=== PATIENT | female | born 1995 | race Caucasian/White ===

== ENCOUNTER 2016-07-15 | Emergency (ER) | payer OTHER ==
--- NOTE | 2016-07-15 11:28 | ED Physician Documentation ---
PD HPI WOUND RECHECK - Stated complaint Stated Complaint: REPACK OF ABSCESS - Chief complaint Chief Complaint: Wound - Histroy obtained from History obtained from: Patient - History of Present Illness Location: Other (buttocks) Timing - onset: How many days ago (12) Associated symptoms: Swelling, Drainage, Pain Similar symptoms before: Diagnosis (abscess) Recently seen: Clinic (The patient has been seen at [facility], placed on antibiotic and has had subsequent I&D and packing. She has been in to have the packing changed daily. She has had a decrease in the pain. She is ready to have the packing out. She notes a smell to the packing and she is not currently on antibiotic.) - Additional information Additional information: 21-year-old female with a 12 day history of abscess to the right buttocks has had I&D done 8 days ago and she has had packing replaced daily she is in here this morning and really would like to have her packing removed. 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 - Present Medications Home Medications: Ambulatory Orders Medication Instructions Recorded Confirmed Oxycodone HCl/Acetaminophen 07/15/16 [Percocet 5-325 mg Tablet] Sulfamethoxazole/Trimethoprim 1 each PO BID #14 tablet 07/15/16 [Sulfamethoxazole-Tmp Ds Tablet] - Allergies Allergies/Adverse Reactions: Allergies Allergy/AdvReac Type Severity Reaction Status Date / Time No Known Drug Allergies Allergy Verified 07/15/16 10:59 - Social History Does the pt smoke?: No Smoking Status: Never smoker Does the pt drink ETOH?: No Does the pt have substance abuse?: No - Immunizations Immunizations are current?: Yes PD ED PE NORMAL - Vitals Vital signs reviewed: Yes (normal) - General General: No acute distress, Well developed/nourished - HEENT HEENT: Atraumatic, PERRL, EOMI - Respiratory Respiratory: No respiratory distress - Back Back: Other (in the right buttock there is a 1 cm healing abscess cavity the packing is removed it is foul smelling there is drainage on the packing in the base of the wound appears clean and dry. The packing is left out.) - Derm Derm: Normal color, Warm and dry, No rash - Extremities Extremities: No deformity, No edema - Neuro Neuro: Alert and oriented X 3, No motor deficit, No sensory deficit, Normal speech - Psych Psych: Normal mood, Normal affect Results - Vitals Vitals: Vital Signs - 24 hr 07/15/16 10:56 Temperature 36.6 C Heart Rate 92 Respiratory 16 Rate Blood Pressure 110/77 O2 Saturation 100 Oxygen O2 Source Room air PD MEDICAL DECISION MAKING - ED course Complexity details: considered differential, d/w patient ED course: 21-year-old female healing buttocks abscess has her packing removed and we'll place her back on some antibiotic. Departure - Departure Disposition: 01 Home, Self Care Clinical Impression: Abscess of buttock, right Condition: Stable Instructions: ED Abscess IandD Follow-Up: Bill Lou ARNP [Primary Care Provider] - Prescriptions: Sulfamethoxazole/Trimethoprim [Sulfamethoxazole-Tmp Ds Tablet] 1 each PO BID # 14 tablet
== END 2016-07-15 11:36 | disposition home or self-care (01) ==
CPT/HCPCS: 99283

== ENCOUNTER 2019-08-01 18:50 | Emergency (ER) | payer OTHER ==
[2019-08-01 18:56] VITALS: BP 136/80
[2019-08-01 19:15] LABS: RAPID STREP SCREEN Negative (Negative)
--- NOTE | 2019-08-01 20:01 | ED Physician Documentation ---
PD HPI URI - Stated complaint Stated Complaint: SORE THROAT,FEVER - Chief complaint Chief Complaint: Heent - History obtained from History obtained from: Patient - History of Present Illness Timing - onset: Other (2 days of sore throat and fever, scratchy sensation without other URI symptoms. Her son is sick with a URI and she was recently exposed to strep.) Review of Systems Constitutional: reports: Fever, Chills Nose: reports: Rhinorrhea / runny nose. 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 - Present Medications Home Medications: Ambulatory Orders Medication Instructions Recorded Confirmed No Known Home Medications 05/08/19 08/01/19 - Allergies Allergies/Adverse Reactions: Allergies Allergy/AdvReac Type Severity Reaction Status Date / Time No Known Drug Allergies Allergy Verified 08/01/19 18:56 - Social History Does the pt smoke?: No Smoking Status: Never smoker Does the pt drink ETOH?: No Does the pt have substance abuse?: No - Immunizations Immunizations are current?: Yes - POLST Patient has POLST: No PD ED PE NORMAL - Vitals Vital signs reviewed: Yes - General General: Alert and oriented X 3, No acute distress - HEENT HEENT: PERRL, EOMI, Ears normal, Moist mucous membranes, Pharynx benign - Neck Neck: Supple, no meningeal sign, No bony TTP - Neuro Neuro: Alert and oriented X 3, Normal speech Results - Vitals Vitals: Vital Signs - 24 hr 08/01/19 18:54 Temperature 37.0 C Heart Rate 90 Respiratory 16 Rate Blood Pressure 136/80 H O2 Saturation 100 Oxygen O2 Source Room air - Labs Labs: Laboratory Tests 08/01/19 18:55 Group A Strep Rapid Negative Departure - Departure Disposition: Home, Self Care Clinical Impression: Viral pharyngitis Condition: Good Record reviewed to determine appropriate education?: Yes Instructions: ED Pharyngitis Viral Report Pending Comments: Return in a week if not better, sooner if worse or new symptoms develop. Your blood pressure was elevated today on check into the emergency department. This does not mean that you have hypertension, it is a common phenomenon to come to the emergency department and have elevated blood pressure. I recommend that you see your primary care physician within the week to have it rechecked when you are feeling better.
== END 2019-08-01 20:04 | disposition home or self-care (01) ==
LOC: ED 18:50
DX: J02.8 Acute pharyngitis due to other specified organisms (principal); R03.0 Elevated blood-pressure reading, without diagnosis of hypertension
CPT/HCPCS: 87070; 87430; 99282; 99283

== ENCOUNTER 2020-04-20 08:19 | Emergency (ER) | payer OTHER ==
--- NOTE | 2020-04-20 08:43 | ED Physician Documentation ---
PD HPI ABD PAIN - Stated complaint Stated Complaint: RT SIDE PX - Chief complaint Chief Complaint: Abd Pain - History obtained from History obtained from: Patient - History of Present Illness Timing - onset: How many days ago (2-3) Timing - duration: Days (2-3) Timing - details: Gradual onset, Still present Quality: Cramping, Aching, Pain Location: RLQ Radiation: Lower back Improved by: No: Eating, BM Worsened by: Moving, Position (lying on side hurts more). No: Eating Associated symptoms: Nausea, Loss of appetite. No: Fever, Vomiting, Diarrhea, Constipation, Hematochezia, Dysuria, Vaginal dc Similar symptoms before: Diagnosis (has history of Crohns but has not had exac for several years.) Recently seen: Not recently seen Review of Systems Constitutional: reports: Fatigue. denies: Fever, Chills, Myalgias Nose: denies: Rhinorrhea / runny nose, Congestion Throat: denies: Sore throat Respiratory: denies: Cough GI: reports: Abdominal Pain (RLQ only), Nausea, Other (some local swelling right perirectal area that was present 2 days ago and decreased a lot on its own with warm towels.). 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: Oophrectomy (right side at age 10 due to ruptured ovarian cyst) - Present Medications Home Medications: Ambulatory Orders Medication Instructions Recorded Confirmed Doxycycline Monohydrate 100 mg PO BID #14 tablet 04/20/20 Famotidine 20 mg PO DAILY #30 tablet 20 Naproxen 375 mg PO TID #30 tablet 04/20/20 dexAMETHasone [Decadron] 4 mg PO DAILY #7 tablet 04/20/20 - Allergies Allergies/Adverse Reactions: Allergies Allergy/AdvReac Type Severity Reaction Status Date / Time No Known Drug Allergies Allergy Verified 04/20/20 08:29 - Social History Does the pt smoke?: No Smoking Status: Never smoker Does the pt drink ETOH?: No Does the pt have substance abuse?: No - Immunizations Immunizations are current?: Yes - POLST Patient has POLST: No PD ED PE NORMAL - Vitals Vital signs reviewed: Yes - General General: Alert and oriented X 3, No acute distress, Well developed/nourished - HEENT HEENT: Moist mucous membranes, Pharynx benign - Neck Neck: Supple, no meningeal sign, No adenopathy - Cardiac Cardiac: RRR, No murmur - Respiratory Respiratory: Clear bilaterally - Abdomen Abdomen: Normal bowel sounds, Soft, Non distended, No organomegaly, Other (Tender with localized guarding but no percussion no rebound in the right lower quadrant. No inguinal adenopathy. No redness nor sores of the skin.) - Female Female : Deferred - Rectal Rectal: Other (Perirectal area shows some mild firmness about 1 cm in size or less in the subcutaneous area. No redness fluctuance or warmth. She states it is much less than it was a couple of days ago.) Results - Vitals Vitals: Vital Signs - 24 hr 04/20/20 04/20/20 04/20/20 08:24 10:40 11:46 Temperature 36.8 C 37 C Heart Rate 80 73 62 Respiratory 15 18 16 Rate Blood Pressure 124/76 116/70 113/63 O2 Saturation 100 100 100 04/20/20 12:46 Temperature 36.8 C Heart Rate 80 Respiratory 16 Rate Blood Pressure 108/63 O2 Saturation 99 Oxygen O2 Source Room air - Labs Labs: Laboratory Tests 04/20/20 04/20/20 04/20/20 09:20 09:20 09:20 WBC 8.8 RBC 4.86 Hgb 13.5 Hct 40.1 MCV 82.5 MCH 27.8 MCHC 33.7 RDW 13.3 Plt Count 259 MPV 9.4 Neut # (Auto) 6.6 Lymph # (Auto) 1.5 [place] # (Auto) 0.6 Eos # (Auto) 0.1 Baso # (Auto) 0.0 Absolute Nucleated RBC 0.00 Nucleated RBC % 0.0 ESR 14 Sodium 139 Potassium 3.7 Chloride 105 Carbon Dioxide 25 Anion Gap 9.0 BUN 11 Creatinine 0.6 Estimated GFR (MDRD) 121 Glucose 91 Calcium 9.3 Total Bilirubin 0.8 AST 20 ALT 19 Alkaline Phosphatase 51 C-Reactive Protein < 1.0 Total Protein 8.3 H Albumin 4.1 Globulin 4.2 Albumin/Globulin Ratio 1.0 Lipase 34 Urine Color Urine Clarity Urine pH Ur Specific Ruf[place] Urine Protein Urine Glucose (UA) Urine Ketones Urine Occult Blood Urine Nitrite Urine Bilirubin Urine Urobilinogen Ur Leukocyte Esterase Ur Microscopic Review Urine Culture Comments Urine HCG, Qual 04/20/20 04/20/20 09:20 09:20 WBC RBC Hgb Hct MCV MCH MCHC RDW Plt Count MPV Neut # (Auto) Lymph # (Auto) [place] # (Auto) Eos # (Auto) Baso # (Auto) Absolute Nucleated RBC Nucleated RBC % ESR Sodium Potassium Chloride Carbon Dioxide Anion Gap BUN Creatinine Estimated GFR (MDRD) Glucose Calcium Total Bilirubin AST ALT Alkaline Phosphatase C-Reactive Protein Total Protein Albumin Globulin Albumin/Globulin Ratio Lipase Urine Color STRAW Urine Clarity CLEAR Urine pH 6.5 Ur Specific [place] <1.005 <=1.005 Urine Protein NEGATIVE Urine Glucose (UA) NEGATIVE Urine Ketones NEGATIVE Urine Occult Blood NEGATIVE Urine Nitrite NEGATIVE Urine Bilirubin NEGATIVE Urine Urobilinogen 0.2 (NORMAL) Ur Leukocyte Esterase NEGATIVE Ur Microscopic Review NOT INDICATED Urine Culture Comments NOT INDICATED Urine HCG, Qual NEGATIVE - Rads (name of study) abd CT Radiology: Prelim report reviewed, See rad report PD MEDICAL DECISION MAKING - ED course Complexity details: reviewed results (Some inflammation and thickening at the distal ileum. Could be acute on chronic. They do not comment on the appendix but no secondary signs of appendicitis. Presumed exacerbation of Crohn's without any other obvious cause at this time.), re-evaluated patient (Presumed exacerbation of Crohn's with. No signs of infection per se so we will treat with anti-inflammatories and pain medicine. She had some mild fullness in the perirectal area but no obvious abscess per se. To watch and see how symptoms develop there.), considered differential (Exacerbation of Crohn's most likely but consider appendicitis or UTI or kidney stone. She does not have an ovary on that side so unlikely ovarian. Will opt for CT instead in light of that.), d/w patient Departure - Departure Disposition: 01 Home, Self Care Clinical Impression: Right lower quadrant abdominal pain, GERD without esophagitis Exacerbation of Crohn's disease Qualifiers: Digestive disease complication type: without complication Qualified Code(s): K50.90 - Crohn's disease, unspecified, without complications Condition: Stable Instructions: ED Inflam Bowel Disease Crohn Follow-Up: [facility] [Provider Group] Prescriptions: dexAMETHasone [Decadron] 4 mg PO DAILY #7 tablet Doxycycline Monohydrate 100 mg PO BID #14 tablet Famotidine 20 mg PO DAILY #30 tablet Naproxen 375 mg PO TID #30 tablet Comments: Stay well-hydrated. Use Decadron steroid for presumed Crohn's flareup. Use it daily for the next 5 to 7 days until feeling really better. For the pain itself he can use naproxen with food twice daily. Alternatively or in addition, you can use Tylenol every 4-6 hours. Famotidine acid reducing medicine for reflux type symptoms. At this point no signs of in infectious complication. If you have fever, mucousy stool, increased swelling in the perirectal area, or other concerns for bacterial infection, then add the doxycycline antibiotic. Recheck if not improved well over the next several days and resolved by 3 to 5 days and return if worsening. Discharge Date/Time: 04/20/20 12:47
[2020-04-20] MEDS ORDERED: SODIUM CHLORIDE 0.9% 1,000 ML IV STA (09:02)
[2020-04-20] MEDS ORDERED: KETOROLAC 15 MG/ML VIAL IVP STA (09:02)
[2020-04-20 09:33] LABS: BASOPHILS % (AUTO) 0.3 %; EOSINOPHILS # (AUTO) 0.1 10^3/uL (0.0-0.7); EOSINOPHILS % (AUTO) 1.3 %; HGB - HEMOGLOBIN 13.5 g/dL (12.0-16.0); LYMPHOCYTES # (AUTO) 1.5 10^3/uL (1.5-3.5); LYMPHOCYTES % (AUTO) 16.5 %; MEAN CORPUSCULAR HEMOGLOBIN 27.8 pg (27.0-31.0); MEAN CORPUSCULAR HGB CONC 33.7 g/dL (32.0-36.0); MEAN CORPUSCULAR VOLUME 82.5 fL (81.0-99.0); MEAN PLATELET VOLUME 9.4 fL (7.9-10.8); MONOCYTES # (AUTO) 0.6 10^3/uL (0.0-1.0); MONOCYTES % (AUTO) 6.6 %; NEUTROPHILS # (AUTO) 6.6 10^3/uL (1.5-6.6); PLT - PLATELET COUNT 259 10^3/uL (130-450); RED BLOOD COUNT 4.86 10^6/uL (4.20-5.40); RED CELL DISTRIBUTION WIDTH 13.3 % (12.0-15.0); WHITE BLOOD COUNT 8.8 x10^3/uL (4.8-10.8)
[2020-04-20 09:35] LABS: BILIRUBIN,URINE NEGATIVE (NEGATIVE); GLUCOSE, URINE (UA) NEGATIVE (NEGATIVE); KETONES,URINE (UA) NEGATIVE (NEGATIVE); LEUKOCYTE ESTERASE, URINE NEGATIVE (NEGATIVE); NITRITE,URINE NEGATIVE (NEGATIVE); OCCULT BLOOD,URINE NEGATIVE (NEGATIVE); PH,URINE 6.5 PH (5.0-7.5); PROTEIN,URINE NEGATIVE (NEGATIVE); UROBILINOGEN,URINE 0.2 (NORMAL) E.U./dL (NORMAL)
[2020-04-20 09:37] LABS: CLARITY,URINE CLEAR (CLEAR)
[2020-04-20 09:39] LABS: HCG UR QUAL NEGATIVE
[2020-04-20 09:55] LABS: ALBUMIN 4.1 g/dL (3.2-5.5); ALKALINE PHOSPHATASE 51 IU/L (42-121); ALT ALANINE AMINOTRANSFERASE 19 IU/L (10-60); AST ASPARTATE AMINOTRANSFERASE 20 IU/L (10-42); BILIRUBIN,TOTAL 0.8 mg/dL (0.2-1.0); BUN - BLOOD UREA NITROGEN 11 mg/dL (6-20); CALCIUM 9.3 mg/dL (8.5-10.3); CARBON DIOXIDE - CO2 25 mmol/L (21-32); CHLORIDE 105 mmol/L (101-111); CREATININE 0.6 mg/dL (0.4-1.0); GLUCOSE 91 mg/dL (70-100); LIPASE 34 U/L (22-51); SODIUM 139 mmol/L (135-145); TOTAL PROTEIN 8.3 g/dL (6.7-8.2)
[2020-04-20 09:57] LABS: CRP - C-REACTIVE PROTEIN < 1.0 mg/dL (0-1.0)
[2020-04-20] MEDS ORDERED: IOVERSOL 320 100 ML VIAL IVP ONE ×2 (10:01→18:44)
--- NOTE | 2020-04-20 10:54 | CT Report ---
PROCEDURE: Abdomen/Pelvis W INDICATIONS: RLQ abd pain; h/o crohns CONTRAST: IV CONTRAST: Optiray 320 ml: 100 PO CONTRAST: *NO PO CONTRAST TECHNIQUE: After the administration of intravenous contrast, 5 mm thick sections acquired from the diaphragms to the symphysis. 5 mm thick coronal and sagittal reformats were acquired. For radiation dose reducti on, the following was used: automated exposure control, adjustment of mA and/or kV according to mel ent size. COMPARISON: Prior studies are currently not available for comparison FINDINGS: Image quality: Excellent. ABDOMEN: Lung bases: Lung bases are clear. Heart size is normal. Solid organs: Liver and spleen are normal in size and enhancement. Gallbladder is unremarkable. Bi liary system is non dilated. Pancreas enhances normally. No adrenal nodules. Kidneys demonstrate n ormal size and enhancement, without hydronephrosis. Peritoneum and bowel: There is mild focal thickening of the wall of the distal ileum proximal to the ileocecal valve, consistent with patient's known diagnosis of Crohn's disease. There is no inflammato ry change in the adjacent fat. This is likely a chronic finding, as was mentioned in the previous MRI report from 02/12/2017. Bowel loops are otherwise unremarkable in appearance. No free air, free fluid , or abscess cavity. Nodes and vessels: No retroperitoneal or mesenteric adenopathy by size criteria. Aorta and inferior vena cava are normal in size. Incidental note is made of the presence of a markedly dilated left go meron vein consistent with reflux with bilateral paraovarian varicosities, left greater than right. Miscellaneous: No ventral hernias. PELVIS: Genitourinary: Bladder wall thickness is normal. Miscellaneous: No inguinal hernias or adenopathy. Question left ovarian hemorrhagic cyst. Bones: No suspicious bony lesions. No vertebral body compression fractures. IMPRESSION: 1. Thickening of the distal ileum is likely a chronic finding, and is consistent with the patient's k nown diagnosis of Crohn's disease. 2. No acute bowel abnormality is suspected. No evidence of acute abdominal process. 3. Incidental note made of left gonadal reflux with left greater than right paraovarian varicosities. This can be associated with a clinical diagnosis of pelvic venous congestion syndrome. 4. Incidental note made of probable small hemorrhagic left ovarian cyst. Reviewed by: Radames Marc MD on 04/20/2020 10:53 AM PDT Approved by: Radames Marc MD on 04/20/2020 10:53 AM PDT Station ID: [id number]
[2020-04-20] MEDS ORDERED: DEXAMETHASONE 10 MG/ML VIAL IVP STA (11:35)
[2020-04-20 12:47] VITALS: BP 108/63
== END 2020-04-20 12:47 | disposition home or self-care (01) ==
LOC: ED 08:19
DX: K50.90 Crohn's disease, unspecified, without complications (principal); K21.9 Gastro-esophageal reflux disease without esophagitis; Z90.721 Acquired absence of ovaries, unilateral
CPT/HCPCS: 36415; 74177; 80053; 81003; 81025; 83690; 85025; 85651; 86140; 96361; 96374; 96375; 99284; Q9967; 81001; 87086

== ENCOUNTER 2020-08-16 15:09 | Emergency (ER) | payer OTHER ==
[2020-08-16 15:39] LABS: BASOPHILS % (AUTO) 0.3 %; EOSINOPHILS # (AUTO) 0.1 10^3/uL (0.0-0.7); EOSINOPHILS % (AUTO) 0.8 %; HGB - HEMOGLOBIN 12.9 g/dL (12.0-16.0); LYMPHOCYTES # (AUTO) 2.5 10^3/uL (1.5-3.5); LYMPHOCYTES % (AUTO) 18.3 %; MEAN CORPUSCULAR HGB CONC 32.1 g/dL (32.0-36.0); MEAN CORPUSCULAR VOLUME 84.3 fL (81.0-99.0); MEAN PLATELET VOLUME 9.2 fL (7.9-10.8); MONOCYTES # (AUTO) 0.9 10^3/uL (0.0-1.0); MONOCYTES % (AUTO) 6.3 %; NEUTROPHILS # (AUTO) 10.3 10^3/uL (1.5-6.6); NEUTROPHILS % (AUTO) 73.9 %; PLT - PLATELET COUNT 294 10^3/uL (130-450); RED BLOOD COUNT 4.77 10^6/uL (4.20-5.40); WHITE BLOOD COUNT 13.9 x10^3/uL (4.8-10.8)
[2020-08-16 15:55] LABS: ALBUMIN 4.4 g/dL (3.2-5.5); ALBUMIN/GLOBULIN RATIO 1.1 (1.0-2.2); BILIRUBIN,TOTAL 0.5 mg/dL (0.2-1.0); CALCIUM 9.4 mg/dL (8.5-10.3); CREATININE 0.7 mg/dL (0.4-1.0); TOTAL PROTEIN 8.5 g/dL (6.7-8.2)
[2020-08-16] MEDS ORDERED: LACTATED RINGERS 1,000 ML IV STA (16:01)
[2020-08-16] MEDS ORDERED: ONDANSETRON 4 MG/2 ML VIAL IVP STA (16:01)
[2020-08-16] MEDS ORDERED: ONDANSETRON ODT 4 MG TABLET TL STA (16:19)
--- NOTE | 2020-08-16 16:43 | ED Physician Documentation ---
PD HPI ABD PAIN - Stated complaint Stated Complaint: ABDOMINAL PX - Chief complaint Chief Complaint: Abd Pain - History obtained from History obtained from: Patient - Additional information Additional information: 25yF with pmh crohns disease on entyvio vedolizumab q8 weeks p/w gradual onset epigastric pain starting today, radiating diffusely to midabdomen a/w bloating sensation, nausea but no vomiting, aching quality, similar to prior flares but in a different location. denies fevers, diarrhea, blood in stool. normal BM today. denies back pain, urinary sx. Review of Systems Ten Systems: 10 systems reviewed and negative Constitutional: denies: Fever GI: reports: Abdominal Pain, Nausea. 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: Oophrectomy (right side at age 10 due to ruptured ovarian cyst) - Present Medications Home Medications: Ambulatory Orders Medication Instructions Recorded Confirmed Mesalamine [Asacol Hd] 800 mg PO QID 10 Days #40 tab 08/16/20 Ondansetron Odt [Zofran Odt] 4 mg TL Q6H PRN #10 tab 08/16/20 - Allergies Allergies/Adverse Reactions: Allergies Allergy/AdvReac Type Severity Reaction Status Date / Time No Known Drug Allergies Allergy Verified 08/16/20 15:12 - Social History Does the pt smoke?: No Smoking Status: Never smoker Does the pt drink ETOH?: No Does the pt have substance abuse?: No - Immunizations Immunizations are current?: Yes - POLST Patient has POLST: No PD ED PE NORMAL - Vitals Vital signs reviewed: Yes - General General: Alert and oriented X 3, No acute distress, Well developed/nourished - HEENT HEENT: Atraumatic, PERRL, EOMI - Neck Neck: Supple, no meningeal sign - Cardiac Cardiac: RRR - Respiratory Respiratory: No respiratory distress, Clear bilaterally - Abdomen Abdomen: Non tender, Non distended, Other (discomfort to palpation in epigastrium) - Female Female : Deferred - Rectal Rectal: Deferred - Back Back: No CVA TTP - Derm Derm: Normal color - Extremities Extremities: No deformity - Neuro Neuro: Alert and oriented X 3 - Psych Psych: Normal mood, Normal affect Results - Vitals Vitals: Vital Signs - 24 hr 08/16/20 15:13 Temperature 37.1 C Heart Rate 94 Respiratory 18 Rate Blood Pressure 111/62 O2 Saturation 98 Oxygen O2 Source Room air - Labs Labs: Laboratory Tests 08/16/20 08/16/20 15:32 15:32 WBC 13.9 H RBC 4.77 Hgb 12.9 Hct 40.2 MCV 84.3 MCH 27.0 MCHC 32.1 RDW 13.0 Plt Count 294 MPV 9.2 Neut # (Auto) 10.3 H Lymph # (Auto) 2.5 [place] # (Auto) 0.9 Eos # (Auto) 0.1 Baso # (Auto) 0.0 Absolute Nucleated RBC 0.00 Nucleated RBC % 0.0 Sodium 139 Potassium 3.8 Chloride 102 Carbon Dioxide 25 Anion Gap 12.0 BUN 11 Creatinine 0.7 Estimated GFR (MDRD) 101 Glucose 96 Calcium 9.4 Total Bilirubin 0.5 AST 23 ALT 15 Alkaline Phosphatase 49 Total Protein 8.5 H Albumin 4.4 Globulin 4.1 Albumin/Globulin Ratio 1.1 Lipase 43 PD MEDICAL DECISION MAKING - ED course ED course: 25-year-old woman with past medical history of Crohn's disease presents with apparent mild flare. We are treating symptomatically with steroids and mesalamine. She will follow up with her natural gas plant technician this week Dr. Carrillo at [facility] in [place]. strict return precautions given. Departure - Departure Disposition: 01 Home, Self Care Clinical Impression: Crohn disease, Abdominal pain, Nausea Condition: Good Instructions: Disease Crohn Dc Prescriptions: Mesalamine [Asacol Hd] 800 mg PO QID 10 Days #40 tab Ondansetron Odt [Zofran Odt] 4 mg TL Q6H PRN #10 tab PRN Reason: Nausea / Vomiting Comments: You were seen in the emergency department for a mild Crohn's flare. You should follow-up with your natural gas plant technician this week. Return to the emergency department if you have any new or worsening symptoms or other concerns.
[2020-08-16 16:51] VITALS: BP 110/60
== END 2020-08-16 16:50 | disposition home or self-care (01) ==
LOC: ED 15:09
DX: K50.90 Crohn's disease, unspecified, without complications (principal)
CPT/HCPCS: 36415; 80053; 83690; 85025; 99283; 99284; J7120; Q0162

== ENCOUNTER 2022-05-03 15:23 | Outpatient (CLI) | payer OTHER ==
[2022-05-03 15:47] LABS: BASOPHILS % (AUTO) 0.4 %; EOSINOPHILS # (AUTO) 0.1 10^3/uL (0.0-0.7); EOSINOPHILS % (AUTO) 1.2 %; HCT - HEMATOCRIT 41.4 % (37.0-47.0); HGB - HEMOGLOBIN 13.4 g/dL (12.0-16.0); LYMPHOCYTES # (AUTO) 3.1 10^3/uL (1.5-3.5); LYMPHOCYTES % (AUTO) 27.8 %; MEAN CORPUSCULAR HEMOGLOBIN 27.7 pg (27.0-31.0); MEAN CORPUSCULAR HGB CONC 32.4 g/dL (32.0-36.0); MEAN CORPUSCULAR VOLUME 85.7 fL (81.0-99.0); MEAN PLATELET VOLUME 8.5 fL (7.9-10.8); MONOCYTES # (AUTO) 0.9 10^3/uL (0.0-1.0); NEUTROPHILS # (AUTO) 6.9 10^3/uL (1.5-6.6); NEUTROPHILS % (AUTO) 62.1 %; PLT - PLATELET COUNT 299 10^3/uL (130-450); RED BLOOD COUNT 4.83 10^6/uL (4.20-5.40); RED CELL DISTRIBUTION WIDTH 13.1 % (12.0-15.0); WHITE BLOOD COUNT 11.1 x10^3/uL (4.8-10.8)
[2022-05-03 16:12] LABS: ALBUMIN 4.2 g/dL (3.2-5.5); ALKALINE PHOSPHATASE 89 IU/L (42-121); ALT ALANINE AMINOTRANSFERASE 23 IU/L (10-60); AST ASPARTATE AMINOTRANSFERASE 20 IU/L (10-42); BILIRUBIN,TOTAL 0.2 mg/dL (0.2-1.0); BUN - BLOOD UREA NITROGEN 16 mg/dL (6-20); CREATININE 0.7 mg/dL (0.4-1.0); GFR - MDRD 100 (>89); TOTAL PROTEIN 8.2 g/dL (6.7-8.2)
[2022-05-03 16:41] LABS: BILIRUBIN,DIRECT < 0.1 mg/dL (0.1-0.5); CRP - C-REACTIVE PROTEIN < 1.0 mg/dL (0-1.0)
== END 2022-05-03 15:24 | disposition home or self-care (01) ==
LOC: LAB 15:23
PROVIDERS: ATTEND Internal Medicine Gastroenterology
DX: K50.00 Crohn's disease of small intestine without complications (principal)
CPT/HCPCS: 36415; 80076; 82565; 84520; 85025; 86140

== ENCOUNTER 2023-08-22 21:13 | Emergency (ER) | payer OTHER ==
[2023-08-22 21:35] VITALS: BP 125/67; O2SAT 100
--- NOTE | 2023-08-22 23:36 | ED Physician Documentation ---
History of Present Illness - Stated complaint Stated Complaint: R HAND BRUISE/TINGLING - Chief complaint Chief Complaint: Ext Problem - History obtained from History obtained from: Patient - Additonal information Additional information: 28yF presents with R hand tingling radiating to elbow about 30 minutes prior to arrival along with R hand swelling/throbbing sensation. no known injury. patient is R handed. states she believes she has history of carpal tunnel syndrome because she "games a lot". also with two children in the home including 18 month old that she regularly lifts. 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: Oophrectomy (right side at age 10 due to ruptured ovarian cyst) - Present Medications Home Medications: Ambulatory Orders Medication Instructions Recorded Confirmed Multivit-Min/Folic Acid/Biotin 1 tab PO DAILY 08/03/22 03/16/23 [Women Multivit W-Biotin Gummy] - Allergies Allergies/Adverse Reactions: Allergies Allergy/AdvReac Type Severity Reaction Status Date / Time No Known Drug Allergies Allergy Verified 08/22/23 21:30 - Social History Does the pt smoke?: No Smoking Status: Never smoker Does the pt drink ETOH?: No Does the pt have substance abuse?: No - Immunizations Immunizations are current?: Yes - POLST Patient has POLST: No PD ED PE NORMAL - Vitals Vital signs reviewed: Yes - General General: Alert and oriented X 3, No acute distress, Well developed/nourished - HEENT HEENT: Atraumatic - Derm Derm: Normal color, Warm and dry, Other (no discoloration appreciated. ) - Extremities Extremities: No deformity, No tenderness to palpate, Normal ROM s pain, No edema, Other (2+ radial pulse RUE. csm intact. ) Results - Vitals Vitals: Vital Signs - 24 hr 08/22/23 08/22/23 21:25 21:30 Temperature 36.7 C 36.7 C Heart Rate 91 91 Respiratory 16 16 Rate Blood Pressure 125/67 125/67 O2 Saturation 100 100 Oxygen O2 Source Room air PD Medical Decision Making - ED course ED course: 28yF previously healthy p/w R hand tingling sensation likely 2/2 median neuropathy. wrist brace provided. return precautions given. [place] Departure - Departure Disposition: 01 Home, Self Care Clinical Impression: Neuropathy of right hand Condition: Stable Instructions: Carpal Tunnel Syndrome Comments: You were seen in the emergency department for wrist tingling likely caused by nerve injury from repetitive use injury. Please wear your wrist brace throughout the day to allow the arm to rest. Please follow-up with your primary care provider and return to the emergency department if you have any new or worsening symptoms or other concerns. Forms: PCP List
== END 2023-08-22 23:54 | disposition home or self-care (01) ==
LOC: ED 21:13
DX: G56.11 Other lesions of median nerve, right upper limb (principal)
CPT/HCPCS: 99282